=== PATIENT | female | born 1985 | race Hispanic/Latino ===

== ENCOUNTER 2017-03-17 03:25 | Inpatient (IN) | payer OTHER ==
[~2017-03-17] VITALS: Ht 162.6 cm; Wt 87.5 kg
[2017-03-17] MEDS ORDERED: Oxytocin 30 Units/500 mL LR 30 UNITS in IV Premix 1 EACH IV PRN ×2 (04:35→14:30)
[2017-03-17] MEDS ORDERED: Oxytocin 10 Unit/mL Inj IM PRN ×2 (04:35→14:30)
[2017-03-17] MEDS ORDERED: Hemorrhage Kit, Post Partum XX ONE ×2 (04:35→14:30)
[2017-03-17] MEDS ORDERED: Carboprost 250 mCg/mL Inj IM PRN ×2 (04:35→14:30)
[2017-03-17] MEDS ORDERED: Sodium Chloride LOK Flush 10 mL Syringe IVFLUSH PRN (04:35)
[2017-03-17] MEDS ORDERED: Methylergonovine 0.2 mg/mL Inj IM PRN ×2 (04:35→14:30)
[2017-03-17] MEDS ORDERED: fentaNYL-PF 50 mCg/mL 2 mL Inj IVPUSH PRN (04:35)
[2017-03-17 04:45] LABS: Mean Corpuscular Hemoglobin 30.4 pg (27.0-35.0); Mean Corpuscular Volume 88.8 fL (81-100)
[2017-03-17] MEDS: Lactated Ringer's 1,000 ML IV PRN ×2 (05:06→06:46)
[2017-03-17] MEDS ORDERED: fentaNYL 2 mCg/mL-Bupivicaine 0.125% 100 mL Premix EPIDURAL ONE (07:27)
[2017-03-17] MEDS ORDERED: Lactated Ringer's 500 ML IV ONE (07:28)
[2017-03-17] MEDS ORDERED: Lactated Ringer's 1,000 ML IV SCH ×2 (07:28→14:30)
[2017-03-17] MEDS ORDERED: EPHEDrine Sulfate 50 mg/mL Inj IVPUSH PRN (07:30)
[2017-03-17] MEDS ORDERED: fentaNYL 2 mCg/mL-Bupiv 0.125% 100 ML EPIDURAL SCH (07:30)
[2017-03-17] MEDS ORDERED: Phenylephrine/NS-PF 100 mCg/mL 5 mL Syringe IVPUSH PRN (07:30)
[2017-03-17] MEDS ORDERED: Atropine 1 mg/10 mL (Code) Syringe IVPUSH PRN (07:30)
[2017-03-17] MEDS ORDERED: Ondansetron 2 mg/mL 2 mL Inj IVPUSH PRN (07:30)
--- NOTE | 2017-03-17 07:30 | PCM.HPANE ---
Patient Data Surgeon Admitting Provider:Rabia Gonzales MD Attending Provider:Rabia Gonzales MD Primary Care Physician:Lisa Sommer MD Other Provider:Dionisio Baker Anesthesia Reason for Visit TERM TERM Ht/WT & BMI Body Mass Index Allergies Coded Allergies: No Known Allergies (Verified , 05/01/05) Past Anesthesia History Anesthesia History: Denies:: Abnormal Airway, Anesthesia Reactions, Difficult Intubation, Fam Anesthesia Reaction, Fam Malignant Hypertherm, Malignant Hyperthermia Diabetes History Hx Diabetes?: No Medications Hypertension Medication: No Home Meds Incl Beta Greg: No History History of ENT Problems?: No HEENT History: Denies:: Abnormal Airway Cataracts Difficult Intubation Dysphagia Glaucoma Hearing Problem Sinus Problem TMJ Denture Type: None Teeth Condition: Within Normal Limits Hx of Heart Problems?: No Cardiovascular History: Denies:: AICD Abdominal Aortic Aneurism Atrial Fibrillation Cardiac Surgery Chest Pain Congestive Heart Failure Coronary Artery Disease Edema Heart Murmur Hypertension Irregular Heartbeat Pacemaker Peripheral Vascular Rheumatic Fever Thrombophlebitis Valvular Heart Disease Hx of Respiratory Problem?: No Respiratory History: Denies:: Asthma COPD Chest Surgery Cough Dyspnea Emphysema Hemoptysis Oxygen Administration Pneumonia Pulmonary Embolism Tuberculosis Use of C-PAP Machine Use of Inhalers / NEBS Hx Neurologic Problems?: No Hx of GI Problems?: No Gastrointestinal History: Denies:: Cirrhosis Diverticulitis Gall Bladder Disease Gastroesphageal Reflux Gastrointestinal Bleeding Heartburn Hepatitis Hiatal Hernia Liver Disease Rectal Bleeding Hx of Problems?: No Female Hx: Positive for:: Currently Hx Musculoskeletal Problems?: No Hx Surgeries?: Yes (c/s) Smoking Status: Unknown if Ever Smoker Stop/Bang Treated for Sleep Apnea?: No Do You Have a CPAP Machine?: No BR[place]ON Risk Assessment: Low Risk, <3 Yes Risk Assessment Category Category 1A: Patient has history of documented sleep apnea, and HAS NOT received any narcotic, sedative or anesthesia administration during this stay. Category 1B: Patient has history of documented sleep apnea, and HAS received any narcotic , sedative or anesthesia administration during this stay Category 2: Patient has SUSPECTED Obstructive Sleep Apnea, and HAS received any narcotic , sedative or anesthesia administration during this stay. Category 3: Patient has SUSPECTED Obstructive Sleep Apnea and HAS NOT received narcotic, sedative or anesthesia administration during this stay. Category 4: Outpatient in Procedural Areas with known sleep apnea or who screen positive for High Risk via the STOP/BANG questionnaire. Exam Exam General Appearance: Oriented X3 HEENT/AIRWAY: MP 2 Lungs: Normal Air Movement Heart: Regular Rate/Rhythm Meds/Labs/Diagnostics Labs Test 03/17/17 04:20 White Blood Count 8.8th/mm3 (3.8-10.1) Red Blood Count 4.37mil/mm3 (3.90-5.20) Hemoglobin 13.3g/dL (12.0-15.6) Hematocrit 38.8% (35.0-46.0) Mean Corpuscular Volume 88.8fL (81-100) Mean Corpuscular Hemoglobin 30.4pg (27.0-35.0) Mean Corpuscular Hemoglobin Concent 34.3% (32.0-37.0) Red Cell Distribution Width 13.8% (12.3-15.4) Platelet Count 251bil/L (150-400) Plan Impression Patient chart reviewed, patient interviewed and anesthestic plan with risks, benefits, and alternatives discussed, and informed consent obtained. ASA Physical Status: ASA3 Severe Disease Leonid Sommer MD Mar 17, 2017 07:30
--- NOTE | 2017-03-17 08:29 | HP ---
[address] [address] HISTORY AND PHYSICAL PATIENT: KATYA ECHEVARRIA : 1985 MR#: [id number] ADMIT: 03/17/2017 JOB ID: [id number] ADMISSION DIAGNOSIS: Spontaneous rupture of membranes at 40 weeks with a trial of labor after . HISTORY OF PRESENT ILLNESS: The patient is a 31-year-old, 4, para 2-0-1-2, at 40 weeks and 0 days by LMP, confirmed by first-trimester ultrasound. Admitted with confirmed spontaneous rupture membranes at 2 a.m. this morning. The patient had her complicated with the followin. Prior section for nonreassuring heart tracing followed by successful . The plan is for TOLAC. 2. Rh negative. Received RhoGAM on December 31, 2016. 3. History of depression. Has insomnia with current . On medications. 4. History of LEEP procedure in 2005. Last Pap smear was normal per patient. The patient denied any vaginal bleeding. Reports movements. OBSTETRICAL HISTORY: First with a spontaneous . Second in 2002, was 40 week ended with a primary section for nonreassuring heart tracing and chorioamnionitis per patient report. In 2006, a 40 weeks ended with a successful at 40 weeks and 0 days, and the current . 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 PAST MEDICAL HISTORY: History of depression. No current meds. PAST SURGICAL HISTORY: Cholecystectomy 2006, LEEP procedure in 2005, and primary in 2002. ALLERGIES: No known drug allergies. MEDICATIONS: vitamins. SOCIAL HISTORY: Denied any alcohol consumption. Denied any drugs of abuse. Denied any cigarette smoking. LABORATORIES: Negative antibody. Negative varicella immune, rubella immune, serology nonreactive, hepatitis B surface antigen negative. HIV nonreactive. GC Chlamydia cultures negative. GBS cultures negative on February 25, 2017. PHYSICAL EXAMINATION: The patient is alert, oriented x3. Vital signs are 129/68 for blood pressure. Respirations are 18, pulse is 96, temperature 36.5 degrees centigrade. Pulse ox is 100% on room air. Heart is regular rate and rhythm. Positive S1, S2. Lungs: Clear to auscultation bilaterally. Abdomen: Gravid uterus, nontender. Positive bowel sounds. Lower extremities: No calf tenderness appreciated bilaterally. Cervical exam is 6 cm dilated, cervix 90% effaced, -1 station, vertex presentation. Intrauterine pressure catheter and scalp electrode were inserted for internal monitoring due to category 2 heart tracing. heart tracing was showing baseline of 135 beats per minute, positive accelerations, early decelerations, one prolonged deceleration that lasted for 6 minutes at least, annabel of 50 beats per minute, back to the baseline. heart tracing recovered with intrauterine resuscitation measures including IV fluids, oxygen mask and position changes. ASSESSMENT AND PLAN: The patient is a 31-year-old, 4, para 2-0-1-2, at 40 weeks and 0 days, with confirmed spontaneous rupture of membranes, for trial of labor after section. Consent signed in the office with Dr. Garcia. Confirmed the consent on admission. 1. For trial of labor after section. She has progressed from 2-6 cm dilated cervix, will expectantly manage labor. 2. Category 2 heart tracing recovered after intrauterine resuscitation measures. Will consider amnio infusion if needed in the future. 3. Discussed intrapartum analgesia options. The patient opted for epidural anesthesia applied. 4. GBS cultures negative. All the above discussed in detail with the patient who agreed to the plan.
[2017-03-17] MEDS ORDERED: Sodium Chloride LOK Flush 10 mL Syringe IVFLUSH SCH (08:30)
[2017-03-17] MEDS ORDERED: LANOlin HPA 7 Gm Ointment TOPICAL PRN (14:30)
[2017-03-17] MEDS ORDERED: Witch Hazel-Glycerin Pads TOPICAL PRN (14:30)
[2017-03-17] MEDS ORDERED: HYDROcodone-APAP 5-325 mg Tablet PO PRN (14:30)
[2017-03-17] MEDS ORDERED: Benzocaine (Dermoplast) 20% 60 Gm Spray TOPICAL PRN (14:30)
--- NOTE | 2017-03-17 21:24 | OP ---
[address] [address] OPERATIVE REPORT PATIENT: KATYA ECHEVARRIA : 1985 MR#: [id number] ADMIT: 03/17/2017 JOB ID: [id number] DATE OF SURGERY: 03/17/2017 PREOPERATIVE DIAGNOSIS(ES): 1. A 31-year-old, G4, P2-0-1-2 female at 40 weeks gestation presenting with rupture of membranes. 2. History of section x1. 3. History of successful vaginal after x1. 4. Rh-negative status. 5. History of depression. POSTOPERATIVE DIAGNOSIS(ES): 1. A 31-year-old, G4, P2-0-1-2 female at 40 weeks gestation presenting with rupture of membranes. 2. History of section x1. 3. History of successful vaginal after x1. 4. Rh-negative status. 5. History of depression. PROCEDURE PERFORMED: Spontaneous vaginal delivery with delivery of a liveborn male infant, born on March 17, 2019, at 1401 hours weighing 3617 g with Apgars of 8 at one minute, 9 at five minutes. SURGEON: Sabrina Garcia MD. DIRECTOR OF PRODUCT MARKETING: Dori Amador. ANESTHESIA: Epidural and local anesthetic. ESTIMATED BLOOD LOSS: 300 cc. FLUID REPLACED: Crystalloid in labor. COMPLICATIONS: None apparent. FINDINGS: Live-born male infant with spontaneous cry and spontaneous movement of all four extremities. INDICATIONS: This is a 31-year-old, -0-1-2 female who is presenting at 40 weeks gestational age complaining of spontaneous rupture of membranes. She was a planned trial of labor after section. She had previously had a in her first with one successful following this. She also has had a history of Rh negative status and depression. She presented on the morning of the complaining of rupture. She was noted to be grossly ruptured and additionally having variable decelerations. An intrauterine pressure catheter as well as scalp electrode were then placed, and the patient quickly progressed to 6 cm. After she remained 6 cm with minimal foreign exchange dealer the next several hours, Pitocin was then started per protocol and an epidural was placed for pain relief. She was then checked and noted to be complete and Pitocin, which had been turned off due to occasional variable prolonged decelerations, was then restarted. She began to push, and she brought the infant's vertex to perineum. PROCEDURE IN DETAIL: The patient was noted to be complete and pushing, so she was placed in dorsal lithotomy position, prepped and draped in the usual sterile fashion for delivery. She pushed and the head delivered spontaneously in the DAWN position over an intact perineum. There was a cord present near the vertex, present at delivery. The anterior shoulder delivered easily, followed by the posterior shoulder. The remainder of the was then easily delivered. After a 60 second cord clamping delay, the cord was then clamped and cut. The infant was passed to the mother's abdomen where nursing personnel were in attendance. Cord blood was then obtained. Pitocin was started per protocol. The placenta delivered intact spontaneously and was passed off the table. On examination, the perineum showed a small second-degree laceration which was repaired with 3-0 Vicryl in the usual running fashion. She also had bilateral labial lacerations which were repaired with 3-0 Vicryl and a [id number] stitch on the right labia and [id number] stitch on the left labia and two simple interrupted stitches on the right labia. Good hemostasis was noted following this. The patient tolerated the procedure well. Recovered in labor and delivery with her . All sponge, needle, and instrument counts were correct. ISAÍAS
[2017-03-18 06:32] LABS: Mean Corpuscular Hemoglobin 30.6 pg (27.0-35.0); Mean Corpuscular Volume 91.2 fL (81-100)
--- NOTE | 2017-03-18 07:55 | PCM.DIOB ---
Obstetrical Disch Instruction Date of Service: Mar 18, 2017 Dates of Hospitalization Date of Hospital Admission Mar 17, 2017 at 03:53 Providers Admitting Physician: Sabrina Garcia MD Primary Care Physician: Lisa Sommer MD Attending Physician: Sabrina Garcia MD Discharge Diagnosis Discharge Diagnosis Spontaneous Vaginal Delivery Problems: Diet Discharge Diet: No restrictions Activity Discharge Activity-General: Pelvic Rest for 6 weeks, Try not to overdue, No lifting >10 pounds for 4-6 weeks Dressing and Incisional Care Hygiene: May shower, NO bathtub, hot tub or whirlpool, Perineal care, Sitz bath , Witch Germania pads Additional Instructions Discharge Instructions Follow up in Women's health clinic in 2-4 weeks If you experiencing depression after delivery please call our office for a sooner appointment If you experience thoughts of self harm or harm to others please seek emergency medical services. Use Ibuprofen 600 mg every 6-8 hours for pain May use percocet 5-325 1-2 tabs evary 4-6 hours for break though pain Colase 100 mg twice daily for constipation Continue vitamin Follow Up Plan Follow Up Plan clinic 2-4 weeks Follow-up appointment: Weeks (2-4) Call your provider for: Fever or Chills, Shortness of breath, Heavy vaginal bleeding, Heavy bleeding, Epigastric pain, Excessive constipation, Vaginal discomfort, Red painful breasts EVIE VILLASENOR DO Mar 18, 2017 07:55
[2017-03-18] MEDS ORDERED: TUCPAD TOPICAL (07:58)
[2017-03-18] MEDS ORDERED: Lanolin TOPICAL (07:58)
[2017-03-18] MEDS ORDERED: IBUP800T28 PO (07:58)
[2017-03-18] MEDS ORDERED: DOCU-41 PO (07:58)
[2017-03-18] MEDS ORDERED: Benzocaine TOPICAL (07:58)
[2017-03-18] MEDS ORDERED: HYDR-4003 PO (07:58)
--- NOTE | 2017-03-18 13:24 | PCM.DC.OB ---
Obstetrical Discharge Summary Date of Service Mar 18, 2017 Date of hospital admission Mar 17, 2017 at 03:53 Date of Discharge: Mar 18, 2017 Providers Admitting Physician: Sabrina Garcia MD Primary Care Physician: Lisa Sommer MD Attending Physician: Sabrina Garcia MD Diagnosis at Time of Discharge Spontaneous Vaginal delivery Problems: Brief History and Physical: The patient is a 31-year-old, 4, para 2-0-1-2, at 40 weeks and 0 days by LMP, confirmed by first-trimester ultrasound. Admitted with confirmed spontaneous rupture membranes at 2 a.m. 03/16/17 plan to proceed for TOLAC. Rh negative. Received RhoGAM on December 31, 2016. History of depression. Has insomnia with current . On medications. History of LEEP procedure in 2005. Last Pap smear was normal per patient. At time of discharge patient eating well, no dysuria, able to ambulate, light lochia, denies nausea, vomiting,fever, chills. PHYSICAL EXAMINATION: Gen: The patient is alert, oriented x3. Vital signs are 129/68 for blood pressure. Respirations are 18, pulse is 96, temperature 36.5 degrees centigrade. Pulse ox is 100% on room air. Cardio: Heart is regular rate and rhythm. Positive S1, S2. Lungs: Clear to auscultation bilaterally. Abdomen: Gravid uterus, nontender. Positive bowel sounds. Lower extremities: No calf tenderness appreciated bilaterally. Hospital Course: The patient is a 31-year-old, 4, para 2-0-1-2, at 40 weeks and 0 days by LMP, confirmed by first-trimester ultrasound. Admitted with confirmed spontaneous rupture membranes approximately 0200. 03/16/17 plan to proceed for TOLAC. patient placed on pitocin per protocol and received epidural. Experienced variable decelerations pitocin turned off and restarted once heart tracing normalized. Spontaneous vaginal delivery with delivery of a liveborn male , born on March 17, 2017, at 0201 hours weighing 3617 g with Apgars of 8 at one minute, 9 at five minutes. Sustained small second degree perineum tear and bilateral superficial labial tear repaired with good closure. Intact placenta delivered with three vessel chord. EBL 300 cc. At time of discharge patient eating well, no dysuria, able to ambulate, light lochia, denies nausea, vomiting,fever, chills. ([Benzocaine]) 1 SPRAY/GM SPRAY 1 SPRAY TOPICAL PRN PRN PRN for perineal pain Prescribed by: EVIE VILLASENOR DO ([Lanolin]) 2 APPLIC/GM OINT 1 APPLIC TOPICAL PRN PRN PRN apply to nipples Prescribed by: EVIE VILLASENOR DO Docusate Sodium (Colace) 100 Mg Capsule 100 MG PO BID Prescribed by: EVIE VILLASENOR DO Hydrocodone-Acetaminophen 5-325 mg (Hydrocodone-Acetaminophen 5-325 mg) 1 Each Tablet 1-2 TABLET PO Q4H PRN PRN For Pain Prescribed by: EVIE VILLASENOR DO Ibuprofen (Ibuprofen) 800 Mg Tablet 800 MG PO Q6H PRN PRN For Pain Prescribed by: EVIE VILLASENOR DO Witch Germania/Glycerin (A.e.r Pads) 12 Towelette/Pkg Towelette 1 PAD TOPICAL PRN PRN PRN for perineal pain Prescribed by: EVIE VILLASENOR DO Discharge Medications: Ibuprofen 600 mg BID Colase 100 mg BID vitamins Percocet 5-325 1-2 tab Q4-6 hours Disposition Discharge to home Follow-up plan Women's health clinic in 2-4 weeks Discharge Diet: No restrictions Discharge Activity-General: Pelvic Rest for 6 weeks, Pelvic Rest, No lifting > 15 pounds for 2 weeks Patient instructions call if you experience Fever or Chills, Shortness of breath, Heavy vaginal bleeding, Heavy bleeding, Epigastric pain, Excessive constipation, Vaginal discomfort, Red painful breasts Seek emergency medical care for thoughts of self harm and harm to others or new or worsening depression Attending Statement: The patient was seen and examined together with Dr. Evie Villasenor DO on 2016 and I agree with the history, exam and plan as outlined in the note above. copies to: Orly French MD, AARON J DO Mar 18, 2017 13:24 Orly French MD Mar 18, 2017 19:33
== END 2017-03-18 09:48 | disposition home or self-care (01) | DRG 560 ==
LOC: FBCO 03:25 → FBC 03:53
PROVIDERS: ADMIT Obstetrics & Gynecology; ATTEND Obstetrics & Gynecology
PROC: 10E0XZZ Delivery of Products of Conception, External Approach (ICD-10-PCS; principal; 2017-03-17)
PROC: 0KQM0ZZ Repair Perineum Muscle, Open Approach (ICD-10-PCS; 2017-03-17)
PROC: 10H073Z Insertion of Monitoring Electrode into Products of Conception, Via Natural or Artificial Opening (ICD-10-PCS; 2017-03-17)
DX: O70.1 Second degree perineal laceration during delivery (principal); Z37.0 Single live birth; O34.211 Maternal care for low transverse scar from previous cesarean delivery; O76 Abnormality in fetal heart rate and rhythm complicating labor and delivery; Z3A.40 40 weeks gestation of pregnancy; O69.82X0 Labor and delivery complicated by other cord entanglement, without compression, not applicable or unspecified